=== PATIENT | male | born 1995 | race African-American/Black ===

== ENCOUNTER 2020-12-29 09:39 | Emergency (ER) | payer SELFPAY ==
[2020-12-29 09:50] VITALS: BP 109/69; PULSE 91; RESP 16; TEMP 36.2; O2SAT 100
--- NOTE | 2020-12-29 09:52 | ED.DIZZY ---
HPI - Dizziness General Chief Complaint: Unspecified Stated Complaint: Dizzy Time Seen by Provider: 12/29/20 09:53 Source: patient and RN notes reviewed Mode of arrival: ambulatory Limitations: no limitations History of Present Illness HPI Narrative: 25-year-old male presents with concern for intermittent brain fogginess for approximately 1 week. Reports he had a panic attack for which she was seen in the emergency room 1 week ago, and since then has been having intermittent brain fogginess and decreased appetite. He reports he ate a normal breakfast this morning and has not had any nausea, vomiting, diarrhea since then. He denies any current dizziness, headache, brain fogginess. He denies any history of headaches, thunderclap headaches. Denies weakness in any extremity, difficulty speaking, difficulty swallowing. He reports history of anemia. He reports he does not have health insurance or primary care doctor. He denies any falls, head injury. MD elicited complaint: dizziness Related Data Home Medications Medication Instructions Recorded Confirmed No Home Medications 12/29/20 12/29/20 Allergies Allergy/AdvReac Type Severity Reaction Status Date / Time No Known Allergies Allergy Unverified 12/29/20 10:04 Review of Systems Review of Systems: Narrative: CONSTITUTIONAL: Denies malaise, chills, sweats, or fever. EYES: Denies visual changes, redness, or discharge. ENT: Denies rhinorrhea, congestion, sinus pain, otalgia or sore throat. CARDIOVASCULAR: Denies chest pain, palpitations, or edema. RESPIRATORY: Denies cough or dyspnea. GASTROINTESTINAL: Denies abdominal pain, nausea, vomiting, diarrhea MUSCULOSKELETAL: Denies back pain, joint pain, or myalgia. NEUROLOGIC: Denies numbness, weakness, or headache. Reports intermittent brain fogginess, intermittent lightheadedness PSYCHIATRIC: Denies current anxiety or depression. Reports history of anxiety All systems reviewed & are unremarkable except as noted in HPI and below PMFSH Comments At time of signature, agree with nursing past medical, surgical, social and family history. There is no relevant family history pertinent to the presenting complaint Exam Narrative: Exam Narrative: GENERAL: Well-appearing, well-nourished, and in no acute distress. HEAD: Normocephalic, atraumatic. EYES: PERRLA, conjunctivae clear, and EOMI. No nystagmus. ENT: Nares clear, turbinates pink, no rhinorrhea or epistaxis. Mucous membranes moist. TM pearly arcos with sharp light reflex bilaterally; no tragal tenderness. Oropharynx without erythema or lesions. Tonsils not enlarged and without exudate. NECK: Supple. No lymphadenopathy. No jugular venous distension, thyromegaly, or carotid bruits. Carotids were easily palpable bilaterally. CHEST: No respiratory distress. Clear to auscultation. No bony deformities, no asymmetry. Speaks in full sentences. HEART: Regular rate and rhythm. No murmur heard. Normal peripheral pulses. ABDOMEN: Soft, nontender, nondistended, normal active bowel sounds, no palpable masses. EXTREMITIES: Normal range of motion. No edema. Normal strength and sensation. SKIN: Warm, dry, no rash. NEURO: Alert and oriented x3. No focal deficits. Cranial nerves II through XII grossly intact PSYCH: Normal mood and affect Course Course Emergency Course: Patient is aware of diagnosis, understands and agrees to treatment plan. Anticipatory guidance given. Patient agrees to follow-up as directed and is aware of reasons to seek care at the emergency department. Portions of this record may have been created with voice recognition software Vital Signs Vital signs: Vital Signs Temperature 97.1 F L 12/29/20 09:50 Pulse Rate 91 12/29/20 09:50 Respiratory Rate 16 12/29/20 09:50 Blood Pressure 109/69 12/29/20 09:50 Pulse Oximetry 100 12/29/20 09:50 Temperature 97.1 F L 12/29/20 09:50 Pulse Rate 91 12/29/20 09:50 Respiratory Rate 16 12/29/20 09:50 Blood Pressure 10
[2020-12-29 10:33] LABS: Glucose Point of Care 96 (65-105)
--- NOTE | 2020-12-29 10:33 | PC.NURSE ---
1029- accucheck is 96mg/Dl, and pt states that he had a meal approx 1.5 hrs ago.
== END 2020-12-29 10:32 | disposition home or self-care (01) ==
PROVIDERS: Emergency Provider Nurse Practitioner
DX: Z71.1 Person with feared health complaint in whom no diagnosis is made (principal); J45.909 Unspecified asthma, uncomplicated
CPT/HCPCS: 82948; 99212; G0463

== ENCOUNTER 2021-03-26 20:03 | Emergency (ER) | payer SELFPAY ==
--- NOTE | ~2021-03-26 | XR_ITS ---
EXAMINATION: XR chest 2V DATE: 03/26/2021 20:38 INDICATION: Chest pain TECHNIQUE: PA and lateral views of the chest are obtained. COMPARISON: 11/21/2018 FINDINGS: The lungs are free of acute opacities. There is no pleural effusion or pneumothorax. The ca rdiomediastinal silhouette is normal. The visualized bones and soft tissues are unremarkable. IMPRESSION: 1. No acute cardiopulmonary abnormality. Reviewed, dictated and finalized at location A.
[2021-03-26 20:18] VITALS: BP 122/77; PULSE 86; RESP 18; TEMP 37; O2SAT 100
--- NOTE | 2021-03-26 20:18 | ECG_ITS ---
Measurements Intervals [place] Rate: 80 P: 68 IN: 148 QRS: 79 QRSD: 88 T: 30 QT: 338 QTc: 392 Interpretive Statements SINUS RHYTHM NORMAL ECG Electronically Signed On 03-27-2021 6:42:59 CDT by Chetan Girard D.O.
[2021-03-26 20:39] LABS: Basophils Percent Auto 0.5 % (0.2-1.2); Eosinophils Absolute Auto 0.1 K/mm3 (0-0.3); Eosinophils Percent Auto 2.7 % (0-4.4); Hemoglobin 13.4 g/dL (14.0-18.0); Immature Granulocyte Absolute 0.01 K/mm3 (0.00-0.031); Immature Granulocyte Percent A 0.3 % (0-0.5); Lymphocytes Absolute Auto 1.47 K/mm3 (0.9-3.2); Lymphocytes Percent Auto 39.2 % (18.3-44.2); Mean Corpuscular HGB Conc 31.9 g/dl (32-36); Mean Corpuscular Hemoglobin 29.3 pg (26-34); Mean Corpuscular Volume 91.9 fl (80-100); Mean Platelet Volume 10.1 fl (7.4-10.4); Monocytes Absolute Auto 0.4 K/mm3 (0.1-0.6); Monocytes Percent Auto 9.6 % (2.6-8.5); Neutrophils Absolute Auto 1.8 K/mm3 (1.3-6.7); Neutrophils Percent Auto 47.7 % (45.5-73.1); Platelet Count Result 229 k/mm3 (150-375); Red Blood Count 4.57 M/mm3 (4.6-6.20); Red Cell Distribution Width 11.3 % (11.5-14.5); White Blood Count 3.8 K/mm3 (4.5-10.0)
[2021-03-26] MEDS: ASPIRIN 81 MG CHEWABLE TABLET 324 MG PO (20:46)
--- NOTE | 2021-03-26 20:47 | ED.CHESTPAIN ---
HPI - Chest Pain General Chief Complaint: Chest Pain Stated Complaint: left sided chest tightness Time Seen by Provider: 03/26/21 20:47 History of Present Illness HPI narrative: 25 yo male w/ h/o asthma presents to the ED for chest pain. He has had left sided pleuritic chest pain intermittently for the past few days. It is mild. He has not tried his inhaler. Related Data Home Medications Medication Instructions Recorded Confirmed No Home Medications 12/29/20 12/29/20 Allergies Allergy/AdvReac Type Severity Reaction Status Date / Time No Known Allergies Allergy Unverified 12/29/20 10:04 Review of Systems Review of Systems: All systems reviewed & are unremarkable except as noted in HPI and below Constitutional: Constitutional: Denies chills Respiratory: Respiratory: Denies dyspnea Gastrointestinal: Gastrointestinal: Denies abdominal pain Musculoskeletal: Musculoskeletal: Denies back pain Neurologic: Reports system reviewed and no additional complaints, except as documented PMF Past Medical History Medical History (Updated 04/04/21 @ 01:52 by Subhash Cameron MD) Asthma Social History Social History (Updated 04/04/21 @ 01:52 by Subhash Cameron MD) Smoking status: Never smoker Exam Const: General: healthy appearing, no acute distress and alert Orientation/consciousness: patient oriented x3 HENMT: Head: normal to inspection Neck: Neck: normal visual inspection and no lymphadenopathy Chest: Chest palpation & inspection: no tenderness Resp: Effort & Inspection: normal respiratory effort Auscultation: clear to auscultation bilaterally, no rales, no rhonchi and no wheezes Cardio: Jugular venous distension: no JVD Rate: regular rate Rhythm: regular rhythm Heart sounds: no murmurs GI: Inspection: non-distended GI Palp: Yes Soft to palpation and No Tenderness to palpation present (GI) Skin: General skin exam: normal color Neuro: General: patient oriented x3 and moves all extremities Speech: normal speech Extrem: General: no edema Psych: Appearance: well kempt Affect: normal affect Course Vital Signs Vital signs: Vital Signs Temperature 37.0 C 03/26/21 20:18 Pulse Rate 86 03/26/21 20:18 Respiratory Rate 18 03/26/21 20:18 Blood Pressure 122/77 03/26/21 20:18 Pulse Oximetry 100 03/26/21 20:18 Temperature 37.0 C 03/26/21 20:18 Pulse Rate 64 03/26/21 22:41 Respiratory Rate 16 03/26/21 22:41 Blood Pressure 122/71 03/26/21 22:41 Pulse Oximetry 100 03/26/21 22:41 MDM - Chest Pain Differential Diagnosis Differential diagnosis: Likely pneumothorax, atypical chest pain and costochondritis Medical Records Data Attestation: I reviewed the patient's medical records. Lab Data Attestation: I reviewed the patient's lab results. Result diagrams: 03/26/21 20:32 03/26/21 20:32 Labs: Lab Results 03/26/21 03/26/21 03/26/21 Range/Units 20:32 20:32 20:32 WBC 3.8 L (4.5-10.0) K/mm3 RBC 4.57 L (4.6-6.20) M/mm3 Hgb 13.4 L (14.0-18.0) g/dL Hct 42.0 (42.0-52.0) % MCV 91.9 (80-100) fl MCH 29.3 (26-34) pg MCHC 31.9 L (32-36) g/dl RDW 11.3 L (11.5-14.5) % Plt Count 229 (150-375) k/mm3 MPV 10.1 (7.4-10.4) fl Immature Gran % (Auto) 0.3 (0-0.5) % Neut % (Auto) 47.7 (45.5-73.1) % Lymph % (Auto) 39.2 (18.3-44.2) % [place] % (Auto) 9.6 H (2.6-8.5) % Eos % (Auto) 2.7 (0-4.4) % Baso % (Auto) 0.5 (0.2-1.2) % Lymph # (Auto) 1.47 (0.9-3.2) K/mm3 [place] # (Auto) 0.4 (0.1-0.6) K/mm3 Eos # (Auto) 0.1 (0-0.3) K/mm3 Baso # (Auto) 0.0 (0.0-0.1) K/mm3 Abs Immat Gran (auto) 0.01 (0.00-0.031) K/mm3 Absolute Neuts (auto) 1.8 (1.3-6.7) K/mm3 Absolute Nucleated RBC 0.0 (0.0-0.012) K/mm3 Nucleated RBC % 0.0 (0.0-0.2) % PT 13.5 (11.1-14.7) Seconds INR 1.0 APTT 33.7 (22.3-36.8) SECONDS Sodium 140 (137-14
[2021-03-26 20:48] VITALS: BP 142/76; PULSE 76; RESP 16; O2SAT 100
[2021-03-26 20:48] LABS: Prothrombin Time 13.5 Seconds (11.1-14.7)
[2021-03-26 20:49] LABS: Partial Thromboplastin Time 33.7 SECONDS (22.3-36.8)
[2021-03-26 20:50] LABS: Anion Gap 11 mmol/L (8-16); Blood Urea Nitrogen 12 mg/dL (9-20); Calcium 9.6 mg/dL (8.4-10.2); Carbon Dioxide 27 mmol/L (22-30); Chloride 102 mmol/L (98-107); Estimated Glomerular Filt Rate > 60; Glucose 130 mg/dL (65-110); Potassium 3.6 mmol/L (3.4-5.0); Sodium 140 mmol/L (137-145)
[2021-03-26 21:01] LABS: Troponin I < 0.012 ng/mL (0.000-0.034)
[2021-03-26 21:47] VITALS: PULSE 71; RESP 18
[2021-03-26] MEDS: ALBUTEROL SULFATE NEB 2.5 MG/0.5 ML INH 5 MG INHALATION (21:47)
[2021-03-26 21:54] VITALS: PULSE 65; RESP 19
[2021-03-26 22:41] VITALS: BP 122/71; PULSE 64; RESP 16; O2SAT 100
== END 2021-03-26 22:42 | disposition home or self-care (01) ==
PROVIDERS: Emergency Provider Emergency Medicine; PCP Physician Assistant
DX: R07.89 Other chest pain (principal); J45.909 Unspecified asthma, uncomplicated
CPT/HCPCS: 36415; 71046; 80048; 84484; 85025; 85610; 85730; 93005; 94640; 99284; A9270

== ENCOUNTER 2021-03-31 14:53 | Emergency (ER) | payer SELFPAY ==
[2021-03-31 15:00] VITALS: BP 127/95; PULSE 70; RESP 14; TEMP 36.7; O2SAT 99
[2021-03-31 15:18] LABS: Basophils Percent Auto 0.9 % (0.2-1.2); Eosinophils Percent Auto 1.2 % (0-4.4); Hematocrit 45.6 % (42.0-52.0); Hemoglobin 14.2 g/dL (14.0-18.0); Lymphocytes Absolute Auto 1.08 K/mm3 (0.9-3.2); Lymphocytes Percent Auto 33.5 % (18.3-44.2); Mean Corpuscular HGB Conc 31.1 g/dl (32-36); Mean Corpuscular Volume 93.3 fl (80-100); Mean Platelet Volume 10.1 fl (7.4-10.4); Monocytes Absolute Auto 0.3 K/mm3 (0.1-0.6); Monocytes Percent Auto 7.8 % (2.6-8.5); Neutrophils Absolute Auto 1.8 K/mm3 (1.3-6.7); Neutrophils Percent Auto 56.6 % (45.5-73.1); Platelet Count Result 247 k/mm3 (150-375); Red Blood Count 4.89 M/mm3 (4.6-6.20); Red Cell Distribution Width 11.1 % (11.5-14.5); White Blood Count 3.2 K/mm3 (4.5-10.0)
[2021-03-31 15:25] LABS: Alanine Aminotransferase 13 U/L (4-50); Albumin Level 4.5 g/dL (3.5-5.1); Alkaline Phosphatase 71 U/L (38-126); Anion Gap 6 mmol/L (8-16); Aspartate Amino Transferase 27 U/L (17-59); Bilirubin,Total 0.4 mg/dL (0.2-1.3); Blood Urea Nitrogen 11 mg/dL (9-20); Calcium 9.3 mg/dL (8.4-10.2); Carbon Dioxide 31 mmol/L (22-30); Chloride 104 mmol/L (98-107); Estimated CRCL calculation 81 ml/min; Estimated Glomerular Filt Rate > 60; Glucose 96 mg/dL (65-110); Lipase 33 U/L (23-300); Sodium 141 mmol/L (137-145)
[2021-03-31 15:39] LABS: Add Urine Microscopic? YES; Appearance Urine Cloudy (Clear); Bilirubin Urine Negative (Negative); Blood Urine Negative (Negative); Color Urine Yellow (Yellow); Glucose Urine UA Negative (Negative); Ketones Urine Negative (Negative); Leukocyte Esterase Ur Negative LEU/UL (Negative); Nitrate Urine Negative (Negative); Protein Urine Negative (Negative); RBC Urine 0-2 /hpf (0-2); Specific Grav Ur 1.011 (1.001-1.035); Urobilinogen Urine Negative mg/dL (<2.0); WBC Urine 0-3 /hpf
[2021-03-31 17:29] VITALS: BP 127/80; PULSE 64; RESP 20; O2SAT 100
[2021-03-31 18:57] VITALS: BP 131/67; PULSE 73; RESP 19; O2SAT 99
--- NOTE | 2021-03-31 18:58 | ED.GENADULT ---
HPI - General Adult General Chief complaint: Unspecified Stated complaint: DEHYDRATED Time Seen by Provider: 03/31/21 17:24 Source: patient and RN notes reviewed Mode of arrival: ambulatory Limitations: no limitations History of Present Illness HPI narrative: Patient is 25 years old -[place] male presented to the ED with chest tightness and palpitation started days ago. Patient believes probably because he is dehydrated. Patient denies any fever, chills, nausea, vomiting, shortness of breath, headache, vomiting, diarrhea, or diaphoresis. Patient under a lot of stress lately, history of anxiety. Patient does not smoke or drink or uses drugs. Related Data Home Medications Medication Instructions Recorded Confirmed No Home Medications 12/29/20 12/29/20 Allergies Allergy/AdvReac Type Severity Reaction Status Date / Time No Known Allergies Allergy Unverified 12/29/20 10:04 Review of Systems Review of Systems: CONSTITUTIONAL: Denies fever, chills, or sweats. EYES: Denies visual changes, redness, or discharge. ENT: Denies rhinorrhea, congestion, sore throat, or otalgia. CARDIOVASCULAR: Denies chest pain, palpitations, or edema. RESPIRATORY: Denies cough or dyspnea. GASTROINTESTINAL: Denies abdominal pain, nausea, vomiting, or diarrhea. GENITOURINARY: Denies dysuria or hematuria. SKIN: Denies rash or itching. MUSCULOSKELETAL: Denies back pain, joint pain, or myalgia. NEUROLOGIC: Denies headache, numbness, or weakness. PSYCHIATRIC: Denies anxiety or depression. Exam Narrative: General appearance: Well-developed, well-nourished Skin: Normal color Head: Normocephalic, nontraumatic Eyes: Clear conjunctiva ENT: Oropharynx normal, ears normal, nose normal Neck: Supple, nontender Chest and respiratory: Airway patent, no respiratory distress, no accessory muscle use Heart: Regular rate/rhythm Abdomen: Soft, nontender, no organomegaly, quiet bowel sounds Vascular: Normal peripheral pulses, normal capillary refill. 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 Patient does not have any comorbidity or any risk factors for any serious disease. Labs, EKG, showed no significant abnormality to explain patient condition. The plan to discharge patient on Vistaril, to follow-up with a principal statistical programmer for echo to rule out any cardiac abnormality could be the underlying cause of patient palpitation. Differential Diagnosis Differential Diagnosis: Palpitation, anxiety-like symptoms, electrolyte imbalance, cardiac arrhythmia Vital Signs Vital Signs: Vital Signs Temperature 36.7 C 03/31/21 15:00 Pulse Rate 70 03/31/21 15:00 Respiratory Rate 14 03/31/21 15:00 Blood Pressure 127/95 H 03/31/21 15:00 Pulse Oximetry 99 03/31/21 15:00 Temperature 36.7 C 03/31/21 15:00 Pulse Rate 73 03/31/21 19:22 Respiratory Rate 16 03/31/21 19:22 Blood Pressure 117/68 03/31/21 19:22 Pulse Oximetry 100 03/31/21 19:22 Lab Data Result diagrams: 03/31/21 15:08 03/31/21
--- NOTE | 2021-03-31 19:06 | ECG_ITS ---
Measurements Intervals [place] Rate: 76 P: 75 MD: 140 QRS: -40 QRSD: 93 T: 49 QT: 355 QTc: 401 Interpretive Statements SINUS RHYTHM LEFT AXIS DEVIATION ST ELEVATION IN DIFFUSE LEADS, PROBABLY EARLY REPOLARIZATION BASELINE ARTIFACT- I, II, III, AVR, AVL, AVF, V2-V6 BORDERLINE ECG Electronically Signed On 03-31-2021 21:11:31 CDT by Chetan Girard D.O.
[2021-03-31 19:22] VITALS: BP 117/68; PULSE 73; RESP 16; O2SAT 100
== END 2021-03-31 19:26 | disposition home or self-care (01) ==
PROVIDERS: Emergency Medicine; Emergency Provider Emergency Medicine; PCP Physician Assistant
DX: R00.2 Palpitations (principal); F41.9 Anxiety disorder, unspecified; R94.31 Abnormal electrocardiogram [ECG] [EKG]
CPT/HCPCS: 36415; 80053; 81001; 83690; 85025; 93005; 99283

== ENCOUNTER 2021-04-18 15:07 | Emergency (ER) | payer MEDICAID, SELFPAY ==
[2021-04-18 15:46] VITALS: BP 109/66; PULSE 65; RESP 16; TEMP 36.8; O2SAT 100
--- NOTE | 2021-04-18 15:52 | ECG_ITS ---
Measurements Intervals [place] Rate: 89 P: 74 MT: 134 QRS: 84 QRSD: 92 T: 37 QT: 323 QTc: 393 Interpretive Statements SINUS RHYTHM ST ELEVATION IN ANTEROLAT/HIGH LAT LEADS- PROBABLY EARLY REPOLARIZATION BASELINE ARTIFACT- I, III, AVL BORDERLINE ECG Electronically Signed On 04-18-2021 20:42:47 CDT by Chetan Girard D.O.
[2021-04-18 16:04] LABS: Basophils Percent Auto 0.9 % (0.2-1.2); Eosinophils Absolute Auto 0.1 K/mm3 (0-0.3); Eosinophils Percent Auto 1.4 % (0-4.4); Hematocrit 41.9 % (42.0-52.0); Hemoglobin 13.6 g/dL (14.0-18.0); Mean Corpuscular HGB Conc 32.5 g/dl (32-36); Mean Corpuscular Hemoglobin 30.2 pg (26-34); Mean Corpuscular Volume 93.1 fl (80-100); Mean Platelet Volume 9.7 fl (7.4-10.4); Monocytes Absolute Auto 0.3 K/mm3 (0.1-0.6); Monocytes Percent Auto 7.8 % (2.6-8.5); Neutrophils Absolute Auto 2.3 K/mm3 (1.3-6.7); Neutrophils Percent Auto 66.9 % (45.5-73.1); Platelet Count Result 234 k/mm3 (150-375); Red Cell Distribution Width 11.2 % (11.5-14.5); White Blood Count 3.5 K/mm3 (4.5-10.0)
[2021-04-18 16:13] LABS: INR 1.1; Prothrombin Time 13.6 Seconds (11.1-14.7)
[2021-04-18 16:14] LABS: Partial Thromboplastin Time 29.9 SECONDS (22.3-36.8)
[2021-04-18 16:29] LABS: Anion Gap 8 mmol/L (8-16); Blood Urea Nitrogen 10 mg/dL (9-20); Calcium 8.9 mg/dL (8.4-10.2); Carbon Dioxide 27 mmol/L (22-30); Chloride 101 mmol/L (98-107); Estimated CRCL calculation 108 ml/min; Estimated Glomerular Filt Rate > 60; Glucose 123 mg/dL (65-110); Potassium 3.3 mmol/L (3.4-5.0); Sodium 136 mmol/L (137-145)
[2021-04-18 16:40] LABS: Troponin I < 0.012 ng/mL (0.000-0.034)
--- NOTE | 2021-04-18 16:42 | PC.NURSE ---
iv that was placed by ems removed. pt states is feeling much better and will follow up with pmd. encouraged to return as needed.
== END 2021-04-19 04:54 | disposition left against medical advice (07) ==
PROVIDERS: Emergency Provider Emergency Medicine
DX: R20.2 Paresthesia of skin (principal); Z53.21 Procedure and treatment not carried out due to patient leaving prior to being seen by health care provider
CPT/HCPCS: 36415; 80048; 84484; 85025; 85610; 85730; 93005; 99199

== ENCOUNTER 2021-04-24 09:59 | Emergency (ER) | payer SELFPAY ==
[2021-04-24 10:10] VITALS: BP 108/81; PULSE 95; RESP 16; TEMP 36.1; O2SAT 100
--- NOTE | 2021-04-24 10:39 | ED.GENADULT ---
HPI - General Adult General Chief complaint: Unspecified Stated complaint: Trouble Swallowing Time Seen by Provider: 04/24/21 10:40 Source: patient Mode of arrival: ambulatory Limitations: no limitations History of Present Illness HPI narrative: Graham Willard is a 25 yo male with depression, anxiety, who comes to [facility] with complaints of feel like he has something stuck in his esophagus he has difficulty swallowing his loss of weight he is worried about the thirst something causing an obstruction-patient is very anxious and some going on for 2 days and finds it difficult to be able to swallow food. He currently is wearing a Holter monitor has a stress test scheduled tomorrow because of 3 weeks of rapid heart rate which is been diagnosed as anxiety but they are completing a work-up including a stress test to make sure that none of these things are cardiac related Related Data Home Medications Medication Instructions Recorded Confirmed escitalopram oxalate 10 mg PO DAILY 04/24/21 04/24/21 Allergies Allergy/AdvReac Type Severity Reaction Status Date / Time No Known Allergies Allergy Verified 04/24/21 10:37 Review of Systems Review of Systems: CONSTITUTIONAL: Denies fever, chills, sweats. EYES: Denies visual changes, redness, discharge. ENT: Denies rhinorrhea, congestion, sore throat, otalgia. CARDIOVASCULAR: Denies chest pain, palpitations, edema. RESPIRATORY: Denies dyspnea, wheezing, cough GASTROINTESTINAL: Dysphagia -denies abdominal pain, nausea, vomiting, diarrhea. GENITOURINARY: Denies dysuria, hematuria, abnormal discharge SKIN: Denies rash or itching. NEUROLOGIC: Denies numbness, or focal weakness. PSYCHIATRIC: Denies anxiety or depression. [facility] Past Medical History Medical History Anxiety Asthma Heart palpitations Family History Family History Other Heart disease Social History Social History (Updated 04/24/21 @ 10:52 by Colleen Hanyes CNP) Smoking status: Never smoker Alcohol intake: never Living arrangements: with family Comments At time of signature, I agree with nursing past medical, surgical, social and family history. There is no relevant family history pertinent to the presenting complaint. Exam Narrative: GENERAL: This is a well-nourished, well-developed patient, in mild distress. Very anxious HEAD: normocephalic, atraumatic. EYES: Sclera clear/white. Vision is grossly intact. EARS: External ears normal, . Hearing grossly intact. NOSE: External nose normal without nasal discharge, nares without redness, no rhinorrhea. THROAT: Mucous membranes moist, posterior pharynx NECK: Neck supple, CARDIOVASCULAR: Tachycardic rate and rhythm without murmurs, gallops, or rubs. RESPIRATORY: Clear to auscultation. Breath sounds equal bilaterally. No wheezes, rales, or rhonchi. GASTROINTESTINAL: Abdomen soft, SKIN: warm, intact with no suspicious lesions or rash, good texture and turgor. NEURO: awake, alert, and oriented to person, place and time. There were no obvious focal neurologic abnormalities. Steady gait EXTREMITIES: Normal range of motion. BACK: Nontender without deformity Course Course Emergency Course: Patient is currently on a Holter monitor and has a stress test scheduled for tomorrow; he is complaining of feeling like he has difficulty swallowing food Started on Protonix and Maalox He has follow-up scheduled with cardiology and he should follow-up with his primary care physician about swallowing difficulty Vital Signs Vital signs: Vital Signs Temperature 96.9 F L 04/24/21 10:10 Pulse Rate 95 04/24/21 10:10 Respiratory Rate 16 04/24/21 10:10 Blood Pressure 108/81 04/24/21 10:10 Pulse Oximetry 100 04/24/21 10:10 Temperature 96.9 F L 04/24/21 10:10 Pulse Rate 95 04/24/21 10:10 Respiratory Rate 16 04/24/21 10:10 Blood Press
== END 2021-04-24 11:30 | disposition home or self-care (01) ==
PROVIDERS: Emergency Provider Nurse Practitioner; PCP Physician Assistant
DX: K21.9 Gastro-esophageal reflux disease without esophagitis (principal); F41.9 Anxiety disorder, unspecified; J45.909 Unspecified asthma, uncomplicated
CPT/HCPCS: 99213; G0463

== ENCOUNTER 2021-04-25 22:29 | Emergency (ER) | payer SELFPAY ==
--- NOTE | ~2021-04-25 | XR_ITS ---
XR chest 2V DATE: 04/25/2021 22:59 INDICATION: Left chest pain TECHNIQUE: PA and lateral views COMPARISON: 03/26/2021 2 view chest FINDINGS: Normal heart size. No hilar or mediastinal enlargement. No pulmonary infiltrate or consolid ation, pleural effusion or pulmonary congestion or pneumothorax. IMPRESSION: Negative chest Reviewed, dictated and finalized at location A. IMPRESSION: Negative chest
--- NOTE | 2021-04-25 22:32 | ECG_ITS ---
Measurements Intervals [place] Rate: 68 P: 81 OR: 139 QRS: 88 QRSD: 92 T: 58 QT: 358 QTc: 382 Interpretive Statements SINUS RHYTHM BASELINE WANDER- I, II, AVR, AVL, AVF, V1 NORMAL ECG Electronically Signed On 04-26-2021 6:59:51 CDT by Chetan Girard D.O.
[2021-04-25 22:41] VITALS: BP 118/74; PULSE 75; RESP 20; TEMP 37; O2SAT 100
[2021-04-25 22:49] LABS: Basophils Percent Auto 0.9 % (0.2-1.2); Eosinophils Absolute Auto 0.1 K/mm3 (0-0.3); Eosinophils Percent Auto 2.1 % (0-4.4); Hematocrit 45.1 % (42.0-52.0); Hemoglobin 14.8 g/dL (14.0-18.0); Lymphocytes Absolute Auto 1.78 K/mm3 (0.9-3.2); Lymphocytes Percent Auto 41.6 % (18.3-44.2); Mean Corpuscular HGB Conc 32.8 g/dl (32-36); Mean Corpuscular Hemoglobin 29.9 pg (26-34); Mean Corpuscular Volume 91.1 fl (80-100); Monocytes Absolute Auto 0.5 K/mm3 (0.1-0.6); Monocytes Percent Auto 11.2 % (2.6-8.5); Neutrophils Absolute Auto 1.9 K/mm3 (1.3-6.7); Neutrophils Percent Auto 44.2 % (45.5-73.1); Platelet Count Result 260 k/mm3 (150-375); Red Blood Count 4.95 M/mm3 (4.6-6.20); White Blood Count 4.3 K/mm3 (4.5-10.0)
--- NOTE | 2021-04-25 22:56 | ED.CHESTPAIN ---
HPI - Chest Pain General Chief Complaint: Chest Pain Stated Complaint: chest pain Time Seen by Provider: 04/25/21 22:52 Source: RN notes reviewed History of Present Illness HPI narrative: Patient presents emergency department from home for chest pain. Patient states that he is laying down watching movie when he developed left-sided chest pain under his left breast he states the pain lasted approximately 10 minutes and resolved on its own described as sharp and stabbing denies any associated shortness of breath fevers or chills abdominal pain nausea vomiting or any other symptoms denies any pain at this time. Patient states he has been seen a family support worker in [place] because he has been having heart palpitations over the last cities had negative echo and negative work-up he has had no pain like he experienced today Related Data Home Medications Medication Instructions Recorded Confirmed escitalopram oxalate 10 mg PO DAILY 04/24/21 04/24/21 Allergies Allergy/AdvReac Type Severity Reaction Status Date / Time No Known Allergies Allergy Verified 04/24/21 10:37 Review of Systems Review of Systems: Gen.: Denies fevers or chills ENT: Denies congestion Respiratory: Denies shortness of breath or cough CV: See HPI GI: Denies abdominal pain nausea, emesis or diarrhea Musculoskeletal: Denies back pain or muscle pain Neuro: Denies numbness, tingling, weakness or focal weakness Skin: Denies rash Except as documented, all other systems reviewed and negative [facility] Past Medical History Medical History Anxiety Asthma Heart palpitations Family History Family History Other Heart disease Social History Social History Smoking status: Never smoker Alcohol intake: never Exam Narrative: APPEARANCE: No acute distress, nontoxic, resting in bed EYES: EOMI HEENT: Normocephalic, atraumatic, OMM RESPIRATORY: No respiratory distress Clear to auscultation bilaterally with no rhonchi wheezing or rales. CARDIOVASCULAR: Regular rate and rhythm without murmurs rubs or gallops. ABDOMINAL: Soft, nontender, nondistended, no rebound or guarding MUSCULOSKELETAl: Moves all extremities. No clubbing, cyanosis or edema. NEURO: Awake and alert. Following commands, speech normal, no focal deficits SKIN:: Warm, dry. No rashes lesions or abrasions PSYCHIATRIC: Normal affect/mood, Course Course Emergency Course: Patient has had no chest pain while in ED Discussed with patient results of workup and diagnosis. Discussed need for follow-up with primary care, proper use of medication, and reasons to return to the emergency department. Patient understands and agrees to current treatment plan Vital Signs Vital signs: Vital Signs Temperature 98.6 F 04/25/21 22:41 Pulse Rate 75 04/25/21 22:41 Respiratory Rate 20 04/25/21 22:41 Blood Pressure 118/74 04/25/21 22:41 Pulse Oximetry 100 04/25/21 22:41 Temperature 98.6 F 04/25/21 22:41 Pulse Rate 85 04/26/21 03:27 Respiratory Rate 15 04/26/21 03:27 Blood Pressure 112/84 04/26/21 03:27 Pulse Oximetry 100 04/26/21 03:27 MDM - Chest Pain MDM Narrative Medical decision making narrative: Patient's EKGs and labs are without significant high risk changes. Cardiac risk factors reviewed. Patient is felt likely low risk for ACS and reasonable for further risk stratification testing as an outpatient. Pain was not sudden or maximal in onset without tearing or ripping quality. No other signs of symptoms suggest aortic dissection. A low-risk Wells criteria is noted, PE is felt to be unlikely. No pneumonia seen on evaluation today. Patient is felt to be a reasonable candidate for continued evaluation as an outpatient Lab Data Result diagrams: 04/25/21 22:41 04/25/21 23:57 Labs: Lab Results
[2021-04-25 23:03] LABS: INR 1.1; Prothrombin Time 13.6 Seconds (11.1-14.7)
[2021-04-25 23:04] LABS: Partial Thromboplastin Time 30.9 SECONDS (22.3-36.8)
[2021-04-25 23:32] VITALS: BP 117/66; PULSE 65; RESP 20; O2SAT 96
[2021-04-25 23:35] LABS: D Dimer 0.27 ug/mL (<0.48)
[2021-04-25 23:58] VITALS: BP 108/74; PULSE 67; RESP 18; O2SAT 97
[2021-04-26 00:31] LABS: Anion Gap 7 mmol/L (8-16); Blood Urea Nitrogen 17 mg/dL (9-20); Calcium 8.7 mg/dL (8.4-10.2); Carbon Dioxide 26 mmol/L (22-30); Chloride 104 mmol/L (98-107); Estimated CRCL calculation 88 ml/min; Estimated Glomerular Filt Rate > 60; Glucose 99 mg/dL (65-110); Potassium 3.7 mmol/L (3.4-5.0); Sodium 137 mmol/L (137-145)
[2021-04-26 00:43] LABS: Troponin I < 0.012 ng/mL (0.000-0.034)
[2021-04-26 03:27] VITALS: BP 112/84; PULSE 85; RESP 15; O2SAT 100
[2021-04-26 04:15] LABS: Troponin I < 0.012 ng/mL (0.000-0.034)
[2021-04-26 04:50] VITALS: BP 105/87; PULSE 69; RESP 18; O2SAT 97
== END 2021-04-26 04:52 | disposition home or self-care (01) ==
PROVIDERS: Emergency Medicine; Emergency Provider Emergency Medicine; PCP Physician Assistant
DX: R07.89 Other chest pain (principal); J45.909 Unspecified asthma, uncomplicated; F41.9 Anxiety disorder, unspecified
CPT/HCPCS: 36415; 71046; 80048; 84484; 85025; 85380; 85610; 85730; 93005; 99284

== ENCOUNTER 2021-05-19 11:22 | Emergency (ER) | payer SELFPAY ==
--- NOTE | ~2021-05-19 | XR_ITS ---
EXAMINATION: XR chest 2V EXAM DATE: 05/19/2021 11:48 INDICATION: Left-sided chest tightness. History asthma. TECHNIQUE: Frontal and lateral projections of the chest obtained and reviewed. Comparison is made to prior examination from 04/25/2021. FINDINGS: The lungs are clear. There are no pleural effusions. The cardiomediastinal silhouette is within normal limits. There is no pneumothorax suspected. The bones and soft tissues are unremarkab le. IMPRESSION: Normal chest x-ray exam. Reviewed, dictated and finalized at location B. IMPRESSION: Normal chest x-ray exam.
--- NOTE | 2021-05-19 11:24 | ECG_ITS ---
Measurements Intervals [place] Rate: 67 P: 62 [place]: 147 QRS: 72 QRSD: 92 T: 44 QT: 351 QTc: 371 Interpretive Statements SINUS RHYTHM WITH SINUS ARRHYTHMIA NORMAL ECG Electronically Signed On 05-19-2021 11:46:21 CDT by Chetan Girard D.O.
[2021-05-19 11:30] VITALS: BP 139/64; PULSE 94; RESP 16; TEMP 36.7; O2SAT 100
[2021-05-19 11:40] LABS: Basophils Percent Auto 0.7 % (0.2-1.2); Eosinophils Absolute Auto 0.1 K/mm3 (0-0.3); Eosinophils Percent Auto 1.7 % (0-4.4); Hematocrit 43.2 % (42.0-52.0); Hemoglobin 13.9 g/dL (14.0-18.0); Lymphocytes Absolute Auto 1.05 K/mm3 (0.9-3.2); Lymphocytes Percent Auto 35.8 % (18.3-44.2); Mean Corpuscular HGB Conc 32.2 g/dl (32-36); Mean Corpuscular Hemoglobin 30.2 pg (26-34); Mean Corpuscular Volume 93.9 fl (80-100); Mean Platelet Volume 9.7 fl (7.4-10.4); Monocytes Absolute Auto 0.2 K/mm3 (0.1-0.6); Monocytes Percent Auto 8.2 % (2.6-8.5); Neutrophils Absolute Auto 1.6 K/mm3 (1.3-6.7); Neutrophils Percent Auto 53.6 % (45.5-73.1); Platelet Count Result 228 k/mm3 (150-375); Red Cell Distribution Width 11.5 % (11.5-14.5); White Blood Count 2.9 K/mm3 (4.5-10.0)
[2021-05-19 11:49] LABS: Prothrombin Time 13.4 Seconds (11.1-14.7)
[2021-05-19 11:50] LABS: Partial Thromboplastin Time 32.9 SECONDS (22.3-36.8)
[2021-05-19 12:00] LABS: Anion Gap 6 mmol/L (8-16); Blood Urea Nitrogen 13 mg/dL (9-20); Calcium 9.3 mg/dL (8.4-10.2); Carbon Dioxide 31 mmol/L (22-30); Chloride 102 mmol/L (98-107); Estimated CRCL calculation 99 ml/min; Estimated Glomerular Filt Rate > 60; Glucose 97 mg/dL (65-110); Potassium 4.1 mmol/L (3.4-5.0); Sodium 139 mmol/L (137-145)
[2021-05-19 12:11] LABS: Troponin I < 0.012 ng/mL (0.000-0.034)
--- NOTE | 2021-05-19 12:21 | ED.GENADULT ---
HPI - General Adult General Chief complaint: Chest Pain Stated complaint: CP Time Seen by Provider: 05/19/21 12:02 Source: patient History of Present Illness HPI narrative: Patient is a 25 y/o male complaining of left sided chest tightness and irritation for last 2 days. He rates his discomfort as 4-5/10. His chest pain radiates to left upper back and shoulder. There is no known alleviating or exacerbating factor. He has some intermittent cough. He also has sore throat. He has no fever or chills. Related Data Home Medications Medication Instructions Recorded Confirmed escitalopram oxalate 10 mg PO DAILY 04/24/21 04/24/21 Allergies Allergy/AdvReac Type Severity Reaction Status Date / Time No Known Allergies Allergy Verified 04/24/21 10:37 Review of Systems Constitutional: Constitutional: Denies chills, Denies fever(s), Denies headache(s) and Denies weakness Eyes: Eyes: Denies blurry vision ENT: Denies headache(s), Denies neck pain and Reports sore throat Cardiovascular: Cardiovascular: Reports chest pain and Denies dyspnea Respiratory: Respiratory: Reports cough and Denies dyspnea Gastrointestinal: Gastrointestinal: Denies abdominal pain, Denies diarrhea, Denies nausea and Denies vomiting Genitourinary: Genitourinary: Denies hematuria and Denies dysuria Musculoskeletal: Musculoskeletal: Denies back pain and Denies neck pain Neurologic: Denies headache(s) and Denies weakness [facility] Past Medical History Medical History Anxiety Asthma Heart palpitations Family History Family History Other Heart disease Social History Social History Smoking status: Never smoker Alcohol intake: never Exam Const: General: no acute distress and well developed Orientation/consciousness: oriented to person, oriented to place, oriented to time and patient oriented x3 HENMT: Head: normocephalic Ears: external ears normal General nose exam: Normal external nose present Eyes: General: appearance normal, both eyes and all related structures Conjunctivae: conjunctivae normal Neck: Neck: normal visual inspection and full ROM Chest: Chest palpation & inspection: normal inspection of the chest and no tenderness Resp: Effort & Inspection: normal respiratory effort Auscultation: clear to auscultation bilaterally Cardio: Rate: regular rate Rhythm: regular rhythm GI: GI Palp: No abdominal tenderness and Yes Soft to palpation Skin: General skin exam: normal color and turgor normal Neuro: General: oriented to person, oriented to place, oriented to time and patient oriented x3 Cognition (Neuro): normal cognition Extrem: General: normal to inspection, full ROM and no pedal edema Psych: Appearance: grossly normal Mental Status: mental status grossly normal Affect: normal affect Course Reevaluation(s) Reevaluation #1: Offered patient COVID test. However, patient declined and stated that he had already scheduled a free test at [facility], he will do outpatient test as scheduled. Date: 05/19/21 Time: 12:50 Vital Signs Vital signs: Vital Signs Temperature 36.7 C 05/19/21 11:30 Pulse Rate 94 05/19/21 11:30 Respiratory Rate 16 05/19/21 11:30 Blood Pressure 139/64 05/19/21 11:30 Pulse Oximetry 100 05/19/21 11:30 Temperature 36.7 C 05/19/21 11:30 Pulse Rate 72 05/19/21 16:10 Respiratory Rate 20 05/19/21 16:10 Blood Pressure 103/64 05/19/21 16:10 Pulse Oximetry 100 05/19/21 16:10 Medical Decision Making Vital Signs Vital Signs: Vital Signs Temperature 36.7 C 05/19/21 11:30 Pulse Rate 94 05/19/21 11:30 Respiratory Rate 16 05/19/21 11:30 Blood Pressure 139/64 05/19/21 11:30 Pulse Oximetry 100 05/19/21 11:30 Temperature 36.7 C 05/19/21 11:30 Pulse Rate 72 05/19/21 16:10 Respirat
[2021-05-19 14:01] VITALS: BP 110/75; PULSE 75; RESP 12; O2SAT 98
[2021-05-19 14:16] LABS: D Dimer 0.27 ug/mL (<0.48)
[2021-05-19 15:40] LABS: Troponin I < 0.012 ng/mL (0.000-0.034)
[2021-05-19 16:10] VITALS: BP 103/64; PULSE 72; RESP 20; O2SAT 100
== END 2021-05-19 16:41 | disposition home or self-care (01) ==
PROVIDERS: Emergency Medicine; Emergency Provider Emergency Medicine; PCP Physician Assistant
DX: R07.89 Other chest pain (principal); J06.9 Acute upper respiratory infection, unspecified; Z20.822 Contact with and (suspected) exposure to COVID-19; F41.9 Anxiety disorder, unspecified; J45.909 Unspecified asthma, uncomplicated
CPT/HCPCS: 36415; 71046; 80048; 84484; 85025; 85380; 85610; 85730; 87081; 87880; 93005; 99284

== ENCOUNTER 2021-07-27 09:24 | Emergency (ER) | payer SELFPAY ==
[2021-07-27 09:34] VITALS: BP 120/67; PULSE 80; RESP 16; TEMP 36.9; O2SAT 100
--- NOTE | 2021-07-27 09:53 | ED.URI ---
HPI - URI/Sore Throat General Chief Complaint: Upper Respiratory Infection Stated Complaint: sore throat Time Seen by Provider: 07/27/21 09:45 Source: patient Mode of arrival: ambulatory Limitations: no limitations History of Present Illness HPI Narrative: Graham Willard is a 25 yo male with no PMH who comes to [facility] with complaints of sore throat x2 to 3 days. States is difficult for him to talk and swallow Related Data Home Medications Medication Instructions Recorded Confirmed No Home Medications 07/27/21 07/27/21 Allergies Allergy/AdvReac Type Severity Reaction Status Date / Time No Known Allergies Allergy Verified 07/27/21 09:35 Review of Systems Review of Systems: CONSTITUTIONAL: Denies fever, chills, sweats. EYES: Denies visual changes, redness, discharge. ENT: Denies rhinorrhea, congestion, has sore throat, otalgia. CARDIOVASCULAR: Denies chest pain, palpitations, edema. RESPIRATORY: Denies dyspnea, wheezing, cough GASTROINTESTINAL: Denies abdominal pain, nausea, vomiting, diarrhea. GENITOURINARY: Denies dysuria, hematuria, abnormal discharge SKIN: Denies rash or itching. NEUROLOGIC: Denies numbness, or focal weakness. PSYCHIATRIC: Denies anxiety or depression. [facility] Past Medical History Medical History Anxiety Asthma Heart palpitations Family History Family History Other Heart disease Social History Social History Smoking status: Never smoker Alcohol intake: never Comments At time of signature, I agree with nursing past medical, surgical, social and family history. There is no relevant family history pertinent to the presenting complaint. Exam Narrative: GENERAL: This is a well-nourished, well-developed patient, in mild distress. HEAD: normocephalic, atraumatic. EYES: Sclera clear/white. Vision is grossly intact. EARS: External ears normal. Hearing grossly intact. NOSE: External nose normal without nasal discharge, nares without redness, no rhinorrhea. THROAT: Mucous membranes moist, posterior pharynx erythema NECK: Neck supple, non-tender CARDIOVASCULAR: Regular rate and rhythm without murmurs, gallops, or rubs. RESPIRATORY: Clear to auscultation. Breath sounds equal bilaterally. No wheezes, rales, or rhonchi. GASTROINTESTINAL: Abdomen soft, non-tender, SKIN: warm, intact with no suspicious lesions or rash, good texture and turgor. NEURO: awake, alert, and oriented to person, place and time. There were no obvious focal neurologic abnormalities. Steady gait EXTREMITIES: Normal range of motion. BACK: Nontender without deformity Course Course Emergency Course: Patient comes to [facility] for evaluation of sore throat Strep test negative Recommended use of Flonase, Zyrtec, lozenges Vital Signs Vital signs: Vital Signs Temperature 98.4 F 07/27/21 09:34 Pulse Rate 80 07/27/21 09:34 Respiratory Rate 16 07/27/21 09:34 Blood Pressure 120/67 07/27/21 09:34 Pulse Oximetry 100 07/27/21 09:34 Temperature 98.4 F 07/27/21 09:34 Pulse Rate 80 07/27/21 09:34 Respiratory Rate 16 07/27/21 09:34 Blood Pressure 120/67 07/27/21 09:34 Pulse Oximetry 100 07/27/21 09:34 MDM - URI/Sore Throat Differential Diagnosis Differential diagnosis: Likely upper respiratory infection, otitis media, sinusitis, bronchitis, pharyngitis and other Lab Data Labs: Strep Screen Presumptive Negative *(Reference Range: Negative)* Critical Care Time Critical Care Time Critical Care Time: No Discharge Plan Discharge Clinical Impression: Pharyngitis Qualifiers: Pharyngitis/tonsillitis etiology: unspecified etiology Qualified Code(s): J02.9 - Acute pharyngitis, unspecified Patient Disposition: Home, Self-Care Condition: Stable
== END 2021-07-27 10:15 | disposition home or self-care (01) ==
PROVIDERS: Emergency Provider Nurse Practitioner
DX: J02.9 Acute pharyngitis, unspecified (principal); J45.909 Unspecified asthma, uncomplicated
CPT/HCPCS: 87081; 87880; 99213; G0463

== ENCOUNTER 2021-07-31 08:47 | Emergency (ER) | payer SELFPAY ==
--- NOTE | 2021-07-31 09:04 | PC.NURSE ---
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 HE STATED HE WAS JUST GOING TO LEAVE. PT AMBULATED OUT OF ED WITH STEADY GAIT, NO DISTRESS NOTED.
== END 2021-07-31 09:04 | disposition left against medical advice (07) ==
LOC: ANHED 09:08
DX: Z53.21 Procedure and treatment not carried out due to patient leaving prior to being seen by health care provider (principal)
CPT/HCPCS: 99199

== ENCOUNTER 2021-11-12 10:09 | Emergency (ER) | payer SELFPAY ==
--- NOTE | ~2021-11-12 | XR_ITS ---
EXAMINATION: XR foot LT min 3V DATE: 11/12/2021 10:31 INDICATION: Left foot pain post injury TECHNIQUE: Dorsoplantar, two oblique and lateral views of the left foot were obtained. COMPARISON: None. FINDINGS: Alignment is normal. No fracture. Joint spaces are normal. Soft tissue swelling at the dorsolateral a spect of the hindfoot. No ankle joint effusion. IMPRESSION: 1. No osseous abnormality. Reviewed, dictated and finalized at location A. IMPRESSION: 1. No osseous abnormality.
--- NOTE | 2021-11-12 10:14 | ED.LOWEXIN ---
HPI - Extremity Injury (Lower) General Chief Complaint: Extremity Injury, Lower Stated Complaint: left foot pain Time Seen by Provider: 11/12/21 10:14 Source: patient Mode of arrival: ambulatory Limitations: no limitations History of Present Illness HPI Narrative: 26-year-old male presents with complaint of left lateral foot pain since yesterday. Patient states he tripped over a parking curb, left ankle twisted and he fell on top of it. Pain was really bad yesterday but feels somewhat better after sleeping. Ambulatory with limp. All systems reviewed and negative except as noted above. Related Data Home Medications Medication Instructions Recorded Confirmed albuterol 11/12/21 Allergies Allergy/AdvReac Type Severity Reaction Status Date / Time No Known Allergies Allergy Verified 07/27/21 09:35 Review of Systems Review of Systems: CONSTITUTIONAL: Denies fever, chills, or sweats. EYES: Denies visual changes, redness, or discharge. ENT: Denies rhinorrhea, congestion, sore throat, or otalgia. CARDIOVASCULAR: Denies chest pain, palpitations, or edema. RESPIRATORY: Denies cough or dyspnea. GASTROINTESTINAL: Denies abdominal pain, nausea, vomiting, or diarrhea. GENITOURINARY: Denies dysuria or hematuria. SKIN: Denies rash or itching. MUSCULOSKELETAL: Denies back pain, joint pain, or myalgia. Left lateral foot pain. NEUROLOGIC: Denies headache, numbness, or weakness. PSYCHIATRIC: Denies anxiety or depression. All other systems reviewed are negative, except as documented in HPI. [facility] Past Medical History Medical History Anxiety Asthma Heart palpitations Family History Family History Other Heart disease Social History Social History Smoking status: Never smoker Alcohol intake: never Comments At time of signature, agree with nursing past medical, surgical, social and family history. There is no relevant family history pertinent to the presenting complaint. Exam Narrative: GENERAL: This is a well-nourished, well-developed patient, in no apparent distress. HEAD: normocephalic, atraumatic. EYES: PERRL. Sclera clear/white. Vision is grossly intact. EARS: External ears normal, auditory canals clear and without drainage, TMs normal without perforation. Hearing grossly intact. NOSE: External nose normal with no obvious nasal discharge, nares without redness, no rhinorrhea. THROAT: Mucous membranes moist, posterior pharynx clear. NECK: Neck supple, non-tender without lymphadenopathy, masses or thyromegaly. CARDIOVASCULAR: Regular rate and rhythm without murmurs, gallops, or rubs. RESPIRATORY: Clear to auscultation. Breath sounds equal bilaterally. No wheezes, rales, or rhonchi. GASTROINTESTINAL: Abdomen soft, non-tender, nondistended. Bowel sounds are active. No hepato-splenomegaly, or palpable masses. No guarding. SKIN: warm, Dry, intact with no suspicious lesions or rash, good texture and turgor. NEURO: awake, alert, and oriented to person, place and time. There were no obvious focal neurologic abnormalities. EXTREMITIES: No joint tenderness, effusion, or edema noted. No calf tenderness. Negative Homans sign bilaterally. Tenderness to proximal aspect fourth and fifth metatarsals. Swelling noted. Range of motion and distal neurovascular intact. BACK: Nontender without deformity. No CVA tenderness. Course Course Level of Care: Express Care Visit Vital Signs Vital signs: Vital Signs Temperature 37.2 C 11/12/21 10:17 Pulse Rate 77 11/12/21 10:17 Respiratory Rate 16 11/12/21 10:17 Blood Pressure 100/57 L 11/12/21 10:17 Pulse Oximetry 99 11/12/21 10:17 Temperature 37.2 C 11/12/21 10:17 Pulse Rate 77 11/12/21 10:17 Respiratory Rate 16 11/12/21 10:17 Blood Pressure 100/57 L 11/12/21 10:17 Pulse Oximetry 99 11/12/21
[2021-11-12 10:17] VITALS: BP 100/57; PULSE 77; RESP 16; TEMP 37.2; O2SAT 99
== END 2021-11-12 11:10 | disposition home or self-care (01) ==
PROVIDERS: Emergency Provider Nurse Practitioner Family; PCP Physician Assistant
DX: S93.602A Unspecified sprain of left foot, initial encounter (principal); W18.09XA Striking against other object with subsequent fall, initial encounter; J45.909 Unspecified asthma, uncomplicated
CPT/HCPCS: 73630; 99213; G0463

== ENCOUNTER 2023-03-08 10:58 | Emergency (ER) | payer MEDICAID, SELFPAY ==
[2023-03-08 11:08] VITALS: BP 104/84; PULSE 81; RESP 16; TEMP 36.9; O2SAT 100
--- NOTE | 2023-03-08 12:15 | ED.DENTAL ---
HPI - Dental/Oral General Chief complaint: Dental/Oral Stated complaint: right side tooth pain Time Seen by Provider: 03/08/23 12:05 Source: patient and RN notes reviewed Mode of arrival: ambulatory Limitations: no limitations History of Present Illness HPI Narrative: Patient presents today complaining of pain and swelling surrounding his right lower wisdom tooth x2 days. Currently rates his pain 6/10 and has been taking ibuprofen with short-term relief. He has been trying to get to see a dentist for several months, but has been unable. Denies shortness of breath. He does report some difficulty fully opening his mouth since symptoms began. Related Data Allergies Allergy/AdvReac Type Severity Reaction Status Date / Time No Known Allergies Allergy Verified 03/08/23 11:06 Review of Systems Review of Systems: CONSTITUTIONAL: Denies body aches, fever, chills, or sweats. EYES: Denies visual changes, redness, or discharge. ENT: Denies rhinorrhea, congestion, sore throat, or otalgia.+ gum swelling and tooth pain CARDIOVASCULAR: Denies chest pain, palpitations, or edema. RESPIRATORY: Denies cough or dyspnea. GASTROINTESTINAL: Denies abdominal pain, nausea, vomiting, or diarrhea. GENITOURINARY: Denies dysuria or hematuria. SKIN: Denies rash, itching, or wounds. MUSCULOSKELETAL: Denies back pain, joint pain, or myalgia. NEUROLOGIC: Denies headache, numbness, tingling, or weakness. PSYCH: Denies depression or anxiety. [facility] Past Medical History Medical History Anxiety Asthma Heart palpitations Family History Family History Other Heart disease Social History Social History Smoking status: Never smoker Alcohol intake: never Living arrangements: with family Comments At time of signature, I have reviewed and agree with nursing past medical, surgical, social and family history unless otherwise noted. Please see nursing chart for further information. There is no relevant family history pertinent to the presenting complaint Exam Narrative: GENERAL: Well-appearing, well-nourished, and in no acute distress. HEAD: Normocephalic, atraumatic. EYES: EOMI. No redness or drainage. Conjunctivae normal. ENT: Mucous membranes pink and moist. + gum swelling surrounding tooth number 32 with mild erythema. This area is tender to palpation. Patient does have some mild trismus as well. NECK: Normal AROM. CHEST: No respiratory distress. EXTREMITIES: Normal range of motion. No edema. SKIN: Warm, dry, no rash. Capillary refill normal. Normal skin turgor. NEURO: No focal deficits. Alert and oriented x3. Gait steady. PSYCH: Normal affect. No signs of depression or anxiety. Course Course Level of Care: Express Care Visit Vital Signs Vital signs: Vital Signs Temperature 98.5 F 03/08/23 11:08 Pulse Rate 81 03/08/23 11:08 Respiratory Rate 16 03/08/23 11:08 Blood Pressure 104/84 03/08/23 11:08 Pulse Oximetry 100 03/08/23 11:08 Oxygen Delivery Room Air 03/08/23 11:08 Temperature 98.5 F 03/08/23 11:08 Pulse Rate 81 03/08/23 11:08 Respiratory Rate 16 03/08/23 11:08 Blood Pressure 104/84 03/08/23 11:08 Pulse Oximetry 100 03/08/23 11:08 Oxygen Delivery Room Air 03/08/23 11:08 Reviewed. Pt has been instructed to follow up with his PCP regarding his elevated blood pressure today. MDM - Dental/Oral MDM Narrative Medical decision making narrative: Will treat patient with amoxicillin for his gingival swelling. Suggest follow-up with dentist as soon as possible. Anticipatory guidance given. Differential Diagnosis Differential diagnosis: Likely gingival abscess, dental caries, toothache, dental abscess and fracture of tooth Critical Care Time Critical Care Time Critical Care Time: No Disch
== END 2023-03-08 12:30 | disposition home or self-care (01) ==
PROVIDERS: Emergency Provider Nurse Practitioner
DX: K05.10 Chronic gingivitis, plaque induced (principal); J45.909 Unspecified asthma, uncomplicated
CPT/HCPCS: 99213; G0463

== ENCOUNTER 2023-11-14 19:22 | Emergency (ER) | payer MEDICAID, SELFPAY ==
[2023-11-14 19:38] VITALS: BP 123/75; PULSE 137; RESP 16; TEMP 39.9; O2SAT 98
--- NOTE | 2023-11-14 19:56 | ED.FEVER ---
HPI - Fever General Chief Complaint: Upper Respiratory Infection Stated Complaint: Fever/Abdominal Pain Time Seen by Provider: 11/14/23 19:42 Source: patient and RN notes reviewed Mode of arrival: ambulatory Limitations: no limitations History of Present Illness HPI Narrative: Patient presents today complaining of a 2 day history of fever up to 103, headache, body aches, sore throat, nausea that is worse at night, and left-sided abdominal discomfort and bloating that is intermittent. Denies diarrhea, constipation, vomiting. He has been taking cold and flu medicine. Related Data Home Medications Medication Instructions Recorded Confirmed No Home Medications 11/14/23 11/14/23 Allergies Allergy/AdvReac Type Severity Reaction Status Date / Time No Known Allergies Allergy Verified 11/14/23 19:28 Review of Systems Review of Systems: CONSTITUTIONAL: Denies chills, or sweats.+ fever, body aches EYES: Denies visual changes, redness, or discharge. ENT: Denies rhinorrhea, congestion, or otalgia.+ sore throat CARDIOVASCULAR: Denies chest pain, palpitations, or edema. RESPIRATORY: Denies cough or dyspnea. GASTROINTESTINAL: Denies vomiting, or diarrhea.+ nausea, abdominal pain GENITOURINARY: Denies dysuria or hematuria. SKIN: Denies rash, itching, or wounds. MUSCULOSKELETAL: Denies back pain, joint pain, or myalgia. NEUROLOGIC: Denies numbness, tingling, or weakness.+ headache PSYCH: Denies depression or anxiety. [facility] Past Medical History Medical History Anxiety Asthma Heart palpitations Family History Family History Other Heart disease Social History Social History Smoking status: Never smoker Alcohol intake: never Living arrangements: with family Comments At time of signature, I have reviewed and agree with nursing past medical, surgical, social and family history unless otherwise noted. Please see nursing chart for further information. There is no relevant family history pertinent to the presenting complaint Exam Narrative: GENERAL: Well-appearing, well-nourished, and in no acute distress. HEAD: Normocephalic, atraumatic. EYES: EOMI. No redness or drainage. Conjunctivae normal. ENT: Mucous membranes pink and moist. Nares clear. No rhinorrhea. TMs normal bilaterally. Throat normal. Uvula midline. NECK: Normal AROM. Supple. No lymphadenopathy. CHEST: No respiratory distress. Clear to auscultation. HEART: Regular rate and rhythm. No murmur appreciated. Normal peripheral pulses. ABDOMEN: Soft, nontender, nondistended, normal active bowel sounds. Patient localized intermittent pain to the left lateral abdomen. No rebound or guarding. EXTREMITIES: Normal range of motion. No edema. SKIN: Warm, dry, no rash. Capillary refill normal. Normal skin turgor. NEURO: No focal deficits. Alert and oriented x3. Gait steady. PSYCH: Normal affect. No signs of depression or anxiety. Course Course Level of Care: Express Care Visit Vital Signs Vital signs: Vital Signs Temperature 103.8 F H 11/14/23 19:38 Pulse Rate 137 H 11/14/23 19:38 Respiratory Rate 16 11/14/23 19:38 Blood Pressure 123/75 11/14/23 19:38 Pulse Oximetry 98 11/14/23 19:38 Oxygen Delivery Room Air 11/14/23 19:38 Temperature 103.8 F H 11/14/23 19:38 Pulse Rate 137 H 11/14/23 19:38 Respiratory Rate 16 11/14/23 19:38 Blood Pressure 123/75 11/14/23 19:38 Pulse Oximetry 98 11/14/23 19:38 Oxygen Delivery Room Air 11/14/23 19:38 Reviewed MDM - Fever MDM Narrative Medical decision making narrative: All testing negative. At this time patient's abdomen is nontender. Recommend [id number] medication for fever and symptoms. Discussed symptoms that would warrant ER visit. Patient agrees with plan. Antic
== END 2023-11-14 20:15 | disposition home or self-care (01) ==
PROVIDERS: Emergency Provider Nurse Practitioner
DX: B34.9 Viral infection, unspecified (principal); Z20.822 Contact with and (suspected) exposure to COVID-19; J45.909 Unspecified asthma, uncomplicated
CPT/HCPCS: 87081; 87426; 87804; 87880; 99213; G0463

== ENCOUNTER 2024-01-20 19:51 | Emergency (ER) | payer MEDICAID, SELFPAY ==
[2024-01-20 20:00] VITALS: BP 123/68; PULSE 77; RESP 16; TEMP 36.9; O2SAT 100
--- NOTE | 2024-01-20 20:11 | ED.HA ---
HPI - Headache General Chief Complaint: Headache Stated Complaint: Headache Time Seen by Provider: 01/20/24 20:00 Source: patient Mode of arrival: ambulatory Limitations: no limitations History of Present Illness HPI Narrative: Graham is a 28-year-old male patient presenting to the clinic today with complaints headache, scalp tingling, left ear discomfort, and some tension in his neck that started earlier today. He reports that he was sitting at a computer when his symptoms began. Currently rates his pain a 3/10. Does feel so he is having mild light sensitivity but no nausea or vomiting. He denies any fever, chills, body aches, sore throat, URI symptoms, rash, or history of migraines. Took some Tylenol for the pain and this did relieve some of the discomfort. History of mono when he was in high school. Related Data Home Medications Medication Instructions Recorded Confirmed No Home Medications 11/14/23 01/20/24 Allergies Allergy/AdvReac Type Severity Reaction Status Date / Time No Known Allergies Allergy Verified 01/20/24 20:04 Review of Systems Review of Systems: Pertinent positives per HPI. Patient denies any fever, chills, rash,visual changes, dizziness, cough, runny nose, sore throat, shortness of breath, chest pain, palpitations, nausea, vomiting, diarrhea, constipation, abdominal pain, or any urinary issues. PMFSH Past Medical History Medical History Anxiety Asthma Heart palpitations Family History Family History Other Heart disease Social History Social History Smoking status: Never smoker Alcohol intake: never Living arrangements: with family Comments At the time of my signature, I reviewed and agree with the nursing past medical, surgical, social, and family history. There is no relevant family history pertinent to the patient complaint. Exam Narrative: General: Well-developed, well nourished, in no apparent distress Head: Normocephalic, atraumatic, no rash on scalp or trauma-feels paresthesia to the left side top of the scalp Eyes: Pupils equally round and reactive to light bilaterally, EOM intact, sclera and conjunctive clear, no discharge, lids normal Ears: TMs intact and clear, ear canals clear, no drainage, grossly hearing normal. Nose: Nares patent, no discharge, no inflammation, no sinus tenderness. Mouth: Oropharynx without lesions or masses, good dentition, MMM. Neck: Supple, trachea midline, no enlargement of anterior cervical nodes, mild enlarged left posterior cervical node, no thyroid masses or goiter palpable. Cardio: Regular rate and rhythm, s1 and s2 normal, no murmur appreciated. Resp: Clear to auscultation bilaterally anteriorly and posteriorly, no rhonchi, rales, wheezing or rubs Course Course Emergency Course: Portions of this record may have been created with voice recognition software. Level of Care: Express Care Visit Vital Signs Vital signs: Vital Signs Temperature 36.9 C 01/20/24 20:00 Pulse Rate 77 01/20/24 20:00 Respiratory Rate 16 01/20/24 20:00 Blood Pressure 123/68 01/20/24 20:00 Pulse Oximetry 100 01/20/24 20:00 Temperature 36.9 C 01/20/24 20:00 Pulse Rate 77 01/20/24 20:00 Respiratory Rate 16 01/20/24 20:00 Blood Pressure 123/68 01/20/24 20:00 Pulse Oximetry 100 01/20/24 20:00 Vital signs reviewed MDM - Headache MDM Narrative Medical decision making narrative: At the time of visit patient is resting comfortably on the exam table. Patient appears to be nontoxic. Plan: I suspect patient has acute headache, scalp paresthesia, left posterior cervical lymphadenopathy. Vital signs are stable. No visible sign of shingles, throat looks normal, no fever or chills. Supportive measures were discussed with the [place]
== END 2024-01-20 20:19 | disposition home or self-care (01) ==
PROVIDERS: Emergency Provider Nurse Practitioner Family
DX: R20.2 Paresthesia of skin (principal); R51.9 Headache, unspecified; R59.0 Localized enlarged lymph nodes; J45.909 Unspecified asthma, uncomplicated
CPT/HCPCS: 99213; G0463

== ENCOUNTER 2024-03-04 11:01 | Emergency (ER) | payer MEDICAID, SELFPAY ==
[2024-03-04 11:11] VITALS: BP 142/73; PULSE 85; RESP 16; TEMP 36.4; O2SAT 100
--- NOTE | 2024-03-04 11:39 | ED.EAR ---
HPI - Ear Problem General Chief complaint: Ear Stated complaint: something in ear Time Seen by Provider: 03/04/24 11:39 Source: patient Mode of arrival: ambulatory Limitations: no limitations History of Present Illness HPI Narrative: 28-year-old male presents with complaint of something crawling in right ear canal. States he woke up that friend's house and felt something moving around in ER. Went to the ER and states they removed earwax and flushed ear and told him nothing else in his canal. When he walked out to his car he immediately felt something crawling around in his ear again. Came to urgent care. All systems reviewed and negative except as noted above. Related Data Home Medications Medication Instructions Recorded Confirmed No Home Medications 11/14/23 03/04/24 Allergies Allergy/AdvReac Type Severity Reaction Status Date / Time No Known Allergies Allergy Verified 03/04/24 11:06 Review of Systems Review of Systems: CONSTITUTIONAL: Denies fever, chills, or sweats. EYES: Denies visual changes, redness, or discharge. ENT: Denies rhinorrhea, congestion, sore throat . Reports something is crawling around in right ear canal. CARDIOVASCULAR: Denies chest pain, palpitations, or edema. RESPIRATORY: Denies cough or dyspnea. GASTROINTESTINAL: Denies abdominal pain, nausea, vomiting, or diarrhea. GENITOURINARY: Denies dysuria or hematuria. SKIN: Denies rash or itching. MUSCULOSKELETAL: Denies back pain, joint pain, or myalgia. NEUROLOGIC: Denies headache, numbness, or weakness. PSYCHIATRIC: Denies anxiety or depression. All other systems reviewed are negative, except as documented in HPI. PMFSH Past Medical History Medical History Anxiety Asthma Heart palpitations Family History Family History Other Heart disease Social History Social History Smoking status: Never smoker Alcohol intake: never Living arrangements: with family Comments At time of signature, agree with nursing past medical, surgical, social and family history. There is no relevant family history pertinent to the presenting complaint. Exam Narrative: GENERAL: This is a well-nourished, well-developed patient, in no apparent distress. HEAD: normocephalic, atraumatic. EYES: PERRL. Sclera clear/white. Vision is grossly intact. EARS: External ears normal, Small insect noted to right ear canal, no erythema, swelling or drainage, Left ear canal normal, TMs normal without perforation. Hearing grossly intact. NOSE: External nose normal NECK: Neck supple, non-tender without lymphadenopathy, masses or thyromegaly. CARDIOVASCULAR: Regular rate and rhythm without murmurs, gallops, or rubs. RESPIRATORY: Clear to auscultation. Breath sounds equal bilaterally. No wheezes, rales, or rhonchi. SKIN: warm, Dry, intact with no suspicious lesions or rash, good texture and turgor. NEURO: awake, alert, and oriented to person, place and time. There were no obvious focal neurologic abnormalities. EXTREMITIES: No joint tenderness, effusion, or edema noted. Course Course Level of Care: Express Care Visit Vital Signs Vital signs: Vital Signs Temperature 36.4 C L 03/04/24 11:11 Pulse Rate 85 03/04/24 11:11 Respiratory Rate 16 03/04/24 11:11 Blood Pressure 142/73 H 03/04/24 11:11 Pulse Oximetry 100 03/04/24 11:11 Oxygen Delivery Room Air 03/04/24 11:11 Temperature 36.4 C L 03/04/24 11:11 Pulse Rate 85 03/04/24 11:11 Respiratory Rate 16 03/04/24 11:11 Blood Pressure 142/73 H 03/04/24 11:11 Pulse Oximetry 100 03/04/24 11:11 Oxygen Delivery Room Air 03/04/24 11:11 reviewed Procedures FB Removal Ear Foreign Body #1: Foreign Body Removal Date: 03/04/24 Foreign Body Removal Time: 11:45 Loca
== END 2024-03-04 11:55 | disposition home or self-care (01) ==
PROVIDERS: Emergency Provider Nurse Practitioner Family
DX: T16.1XXA Foreign body in right ear, initial encounter (principal); W44.F4XA Insect entering into or through a natural orifice, initial encounter; J45.909 Unspecified asthma, uncomplicated
CPT/HCPCS: 99212; G0463

== ENCOUNTER 2024-07-04 10:43 | Emergency (ER) | payer MEDICAID, SELFPAY ==
[2024-07-04 11:00] VITALS: BP 111/78; PULSE 88; RESP 16; TEMP 37.2; O2SAT 100
--- NOTE | 2024-07-04 11:03 | ED.URI ---
HPI - URI/Sore Throat General Chief Complaint: Upper Respiratory Infection Stated Complaint: Sore Throat/Bodyaches Time Seen by Provider: 07/04/24 11:16 Source: patient, RN notes reviewed and old records reviewed Mode of arrival: ambulatory Limitations: no limitations History of Present Illness HPI Narrative: Patient presents with complaints of 3 days of fever and sore throat. He has been taking Tylenol and ibuprofen with moderate results. States the last night was the worst of his symptoms. Is able to swallow and manage own secretions, but does report that this increases pain. No drooling or stridor. No injury or trauma. Denies other concerns or complaints at this time Related Data Allergies Allergy/AdvReac Type Severity Reaction Status Date / Time No Known Allergies Allergy Verified 07/04/24 10:51 Review of Systems Review of Systems: All systems reviewed & are unremarkable except as noted in HPI and below Constitutional: Constitutional: Reports no additional constitutional complaints ENT: Reports system reviewed and no additional complaints, except as documented and Reports sore throat Cardiovascular: Cardiovascular: Reports no additional cardiovascular complaints Respiratory: Respiratory: Reports no additional respiratory complaints Gastrointestinal: Gastrointestinal: Reports no additional gastrointestinal complaints [facility] Past Medical History Medical History Anxiety Asthma Heart palpitations Family History Family History Other Heart disease Social History Social History Smoking status: Never smoker Alcohol intake: never Living arrangements: with family Comments At the time of my signature, I reviewed and agree with the nursing past medical, surgical, social, and family history. There is no relevant family history pertinent to the patient complaint. Exam Const: General: cooperative, no acute distress, alert and awake Orientation/consciousness: oriented to person, oriented to place and oriented to time HENMT: Head: normal to inspection Ears: TM's normal bilaterally Throat: abnormal tonsil bilateral erythema, exudates and hypertrophy and posterior oropharynx abnormal erythema Resp: Effort & Inspection: normal respiratory effort and able to speak in complete sentences Auscultation: clear to auscultation bilaterally, no crackles, no rales, no rhonchi and no wheezes Cardio: Palpation: normal PMI Rate: regular rate Rhythm: regular rhythm Heart sounds: S1 normal heart sound present and S2 normal heart sound present Neuro: General: oriented to person, oriented to place and oriented to time Cranial nerves: Yes CN's II-XII intact bilaterally Psych: Appearance: grossly normal Thought process: Normal thought process present Insight: Good insight present (Psych) Judgement: Good judgement present (Psych) Course Course Level of Care: Express Care Visit Vital Signs Vital signs: Vital Signs Temperature 98.9 F 07/04/24 11:00 Pulse Rate 88 07/04/24 11:00 Respiratory Rate 16 07/04/24 11:00 Blood Pressure 111/78 07/04/24 11:00 Pulse Oximetry 100 07/04/24 11:00 Oxygen Delivery Room Air 07/04/24 11:00 Temperature 98.9 F 07/04/24 11:00 Pulse Rate 88 07/04/24 11:00 Respiratory Rate 16 07/04/24 11:00 Blood Pressure 111/78 07/04/24 11:00 Pulse Oximetry 100 07/04/24 11:00 Oxygen Delivery Room Air 07/04/24 11:00 Reviewed MDM - URI/Sore Throat MDM Narrative Medical decision making narrative: History, exam and rapid strep consistent with strep throat. Patient nontoxic appearing, no distress. Stable for discharge home on p.o. antibiotics. Discharge instructions reviewed with patient, as well as provided in writing per nursing staff. The instructions also include specific and strict return/GO TO THE ER as well as f/u information. All questions have been answered, and the patient deny any further questions with discharge and discharge plan. Some parts of this dictation were generated by voice recognition software and may contain typographical and/or grammatical inaccuracies. Differential Diagnosis Differential diagnosis: Likely upper respiratory infection, otitis media and pharyngitis Medical Records Attestation: I reviewed the patient's medical records. Lab Data Attestation: I reviewed the patient's lab results. Labs: Lab Results 07/04/24 Range/Units 11:30 POC Grp A Strep Screen Positive (Negative) Discharge Plan Discharge Clinical Impression: Pharyngitis Qualifiers: Pharyngitis/tonsillitis etiology: streptococcus Qualified Code(s): J02.0 - Streptococcal pharyngitis Patient Disposition: Home, Self-Care Condition: Stable Instructions: Antibiotic Form, Strep Throat (ED) Additional Instructions: Take all medications as prescribed. Follow-up with primary care provider. Emergency department for new or worse symptoms. Discard toothpaste and toothbrush after 48-72 hours on antibiotic therapy Patient Language: Macedonian Prescriptions: New penicillin V potassium 500 mg tablet 500 mg PO Q12H 10 Days Qty: 20 0RF Follow-up/Referrals: PHYSICIAN,CLASSIFYING MACHINE OPERATOR [Primary Care Provider] - Stand Alone Forms: Work/School Release IP Time of Disposition: 11:24
[2024-07-04 11:33] LABS: EDSTREPNEGPOS1 Positive (Negative)
== END 2024-07-04 11:33 | disposition home or self-care (01) ==
PROVIDERS: Emergency Provider Nurse Practitioner Family
DX: J02.0 Streptococcal pharyngitis (principal); J45.909 Unspecified asthma, uncomplicated
CPT/HCPCS: 87880; 99213; G0463

== ENCOUNTER 2025-01-30 09:45 | Emergency (ER) | payer OTHER, SELFPAY ==
[2025-01-30 09:57] VITALS: BP 119/74; PULSE 80; RESP 16; TEMP 36.4; O2SAT 99
--- NOTE | 2025-01-30 10:08 | ED_ITS ---
HPI - URI/Sore Throat General Chief Complaint: Upper Respiratory Infection Stated Complaint: Cough/Bodyache Time Seen by Provider: 01/30/25 10:09 Source: patient, RN notes reviewed and old records reviewed Mode of arrival: ambulatory Limitations: no limitations History of Present Illness HPI Narrative: 29-year-old male presents to the [facility] 2 day history of cough, body aches, itchy ears Patient has taken ibuprofen. Feels better today than yesterday. Related Data Home Medications ?Medication ?Instructions ?Recorded ?Confirmed ?Last Taken ?Type ergocalciferol (vitamin D2) 1,250 01/30/25 Unknown History mcg (50,000 unit) capsule fluticasone propionate 50 intranasal 01/30/25 Unknown History mcg/actuation nasal spray,suspension Allergies Allergy/AdvReac Type Severity Reaction Status Date / Time No Known Allergies Allergy Verified 01/30/25 10:07 Review of Systems Review of Systems: All systems reviewed & are unremarkable except as noted in HPI and below Constitutional: Constitutional: Reports as per HPI and Reports body ache(s) ENT: Reports as per HPI Cardiovascular: Cardiovascular: Reports no additional cardiovascular complaints, Denies chest pain and Denies dyspnea Respiratory: Respiratory: Reports as per HPI, Denies chest congestion, Reports cough (Nonproductive) and Denies dyspnea Musculoskeletal: Musculoskeletal: Reports no additional musculoskeletal complaints Integumentary/Breasts: Skin/Breast: Reports system reviewed and no additional complaints, except as docu PMFSH Past Medical History Medical History Anxiety Heart palpitations Asthma Family History Family History Other Heart disease Social History Social History Smoking status: Never smoker Alcohol intake: never Living arrangements: with family Comments At the time of my signature, I reviewed and agree with the nursing past medical, surgical, social, and family history. There is no relevant family history pertinent to the patient complaint. Exam Const: General: cooperative, healthy appearing, comfortable, no acute distress, well developed, alert and well nourished Nutritional Appearance: well nourished Orientation/consciousness: patient oriented x3 Limitations: no limitations HENMT: Head: normal to inspection Ears: hearing grossly normal bilaterally, external ears normal, TM's normal bilaterally, EAC's normal, mastoids normal and no periauricular adenopathy Mouth: Yes Normal oral and palatal mucosa present, Yes lip normal, Yes tongue normal and Yes moist mucous membranes Throat: posterior oropharynx normal, uvula midline and no uvular edema Eyes: General: appearance normal, both eyes and all related structures Alignment and Position: alignment normal Neck: Neck: normal visual inspection, full ROM, no lymphadenopathy and no meningeal signs Chest: Chest palpation & inspection: normal inspection of the chest Resp: Effort & Inspection: normal respiratory effort and able to speak in complete sentences Auscultation: clear to auscultation bilaterally, no crackles, no rales, no rhonchi and no wheezes Cardio: Rate: regular rate Skin: General skin exam: normal color and no rashes or lesions noted Neuro: General: patient oriented x3, gait normal, moves all extremities and no meningeal signs Cognition (Neuro): normal cognition Speech: normal speech Gait exam (Neuro): Normal gait present Extrem: General: normal to inspection, full ROM, capillary refill normal and normal gait Psych: Appearance: grossly normal and well kempt Mental Status: mental status grossly normal Speech and movement: Normal speech and movement present and Clear speech present Affect: normal affect Attitude: cooperative Course Course Level of Care: Express Care Visit Vital Signs Vital signs: Vital Signs Temperature 97.6 F 01/30/25 09:57 Pulse Rate 80 01/30/25 09:57 Respiratory Rate 16 01/30/25 09:57 Blood Pressure 119/74 01/30/25 09:57 Pulse Oximetry 99 01/30/25 09:57 Oxygen Delivery Room Air 01/30/25 09:57 Temperature 97.6 F 01/30/25 09:57 Pulse Rate 80 01/30/25 09:57 Respiratory Rate 16 01/30/25 09:57 Blood Pressure 119/74 01/30/25 09:57 Pulse Oximetry 99 01/30/25 09:57 Oxygen Delivery Room Air 01/30/25 09:57 Reviewed MDM - URI/Sore Throat MDM Narrative Medical decision making narrative: Patient sitting in exam room. Patient is nontoxic, vitals are stable Two day history of URI symptoms. Patient COVID positive Patient appropriate for outpatient treatment and follow-up Discharge instructions reviewed with patient, as well as provided in writing per nursing staff. The instructions also include specific and strict return/GO TO THE ER as well as f/u information. All questions have been answered, and the patient deny any further questions with discharge and discharge plan. Some parts of this dictation were generated by voice recognition software and may contain typographical and/or grammatical inaccuracies. Differential Diagnosis Differential diagnosis: Likely upper respiratory infection, otitis media, sinusitis, viral infection, bronchitis, influenza and pharyngitis Lab Data Labs: Lab Results 01/30/25 01/30/25 01/30/25 Range/Units 10:19 10:20 10:21 POC Influenza A Ag Negative Negative (Negative) POC Influenza B Ag Negative Negative (Negative) POC SARS CoV-2 Ag Positive Negative (Negative) Reviewed Critical Care Time Critical Care Time Critical Care Time: No Discharge Plan Discharge Clinical Impression: COVID-19 Patient Disposition: Home Condition: Stable Instructions: Antibiotic Form, COVID-19 (Coronavirus Disease 2019) (ED), COVID- 19: Slow the Coronavirus Spread (ED), COVID-19 and Children (ED) Additional Instructions: Your rapid COVID test was positive Your rapid flu test was negative Your symptoms are due to a viral illness, which is not treated with antibiotics. Typically viral infections last 7-10 days, can linger for couple of weeks. It is very important to treat your symptoms. Drink plenty of water, Gatorade, Pedialyte, ice pops or Jell-O. -Alternate Tylenol and Motrin per package directions for fever or pain. You can alternate every 4 hours -Antihistamine medication such as Zyrtec/Claritin/Malika during the day can help improve symptoms. -doing daily nasal irrigations can help relieve pressure your sinuses. Things like a Neti pot -Use Flonase twice a day for 5 days then daily to help reduce the inflammation and dry up your sinuses. -You can also use Mucinex. Be sure to drink plenty of water with this medication at least 8 ounces with every dose and it is important to drink 8 to 10 glasses of water per day. Water is a natural decongestant -Eat and drink things that are easy to swallow, like tea or soup, or popsicles. -Oral rinses such as: Salt water gargles and/or may use topical anesthetic (eg. Chloraseptic spray) or lozenges to relieve dryness or throat pain). -Frequent hand washing or hand composition roll maker and cutter is one of the best ways to prevent spread of infection. -Using a vaporizer or humidifier at night will also help thin secretions and help with coughing up phlegm. -Follow up with primary care provider in 7-10 days if condition is not improving - For new or worsening symptoms go directly to the nearest ER Patient Language: Albanian Prescriptions: No Action ergocalciferol (vitamin D2) 1,250 mcg (50,000 unit) capsule fluticasone propionate 50 mcg/actuation spray,suspension INTRANASAL Follow-up/Referrals: PHYSICIAN,YOUTH AGENT [Primary Care Provider] - Stand Alone Forms: Work/School Release IP Time of Disposition: 10:19
[2025-01-30 10:23] LABS: EDINFLUASCREEN Negative (Negative); EDINFLUBSCREEN Negative (Negative)
[2025-01-30 10:23] LABS: EDCOVIDSCREEN Positive (Negative)
[2025-01-30 10:31] LABS: EDCOVIDSCREEN Negative (Negative); EDINFLUASCREEN Negative (Negative); EDINFLUBSCREEN Negative (Negative)
== END 2025-01-30 10:25 | disposition home or self-care (01) ==
PROVIDERS: Emergency Provider Nurse Practitioner
DX: U07.1 COVID-19 (principal); J45.909 Unspecified asthma, uncomplicated
CPT/HCPCS: 87426; 87804; 99212; G0463

== ENCOUNTER 2025-05-01 16:59 | Emergency (ER) | payer SELFPAY ==
[2025-05-01 17:09] VITALS: BP 126/73; PULSE 74; RESP 18; TEMP 36.8; O2SAT 100
--- NOTE | 2025-05-01 17:28 | ED_ITS ---
HPI - Extremity Injury (Upper) General Chief Complaint: Eye Problems Stated Complaint: RT Arm Pain Source: patient Mode of arrival: ambulatory Limitations: no limitations History of Present Illness HPI narrative: 29 old male presented for complaint of pain to the right arm. Onset today. 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 pain was sharp and progressively worsened over the next few hours. Since then has subsided. Now he describes it as a cramping in the bicep, elbow, and wrist. Denies numbness, tingling, or weakness. Endorses normal range of motion, but pain with posterior movement. Denies known injury. He states over the past 2-3 days he has been swimming and holding his 3-year-old more frequently. Has not taken anything for pain. Additionally, patient reports bilateral eyes feel dry x3 days, left eye twitches at times, and he had a brief episode of tunnel vision today. Denies dizziness, chest pain, palpitations, nausea, vomiting, fevers or chills. Related Data Allergies Allergy/AdvReac Type Severity Reaction Status Date / Time No Known Allergies Allergy Verified 05/01/25 17:19 Review of Systems Review of Systems: CONSTITUTIONAL: Denies body aches, fever, chills EYES: reports one episode of tunnel vision ENT: Denies rhinorrhea, congestion CARDIOVASCULAR: Denies chest pain, palpitations, or edema. RESPIRATORY: Denies cough or dyspnea. SKIN: Denies rash, itching, or wounds. MUSCULOSKELETAL: reports right shoulder and arm pain NEUROLOGIC: Denies headache, numbness, tingling, or weakness. All systems reviewed & are unremarkable except as noted in HPI and below PMFSH Past Medical History Medical History Anxiety Heart palpitations Asthma Family History Family History Other Heart disease Social History Social History Smoking status: Never smoker Alcohol intake: never Living arrangements: with family Comments At time of signature, I have reviewed and agree with nursing past medical, surgical, social and family history unless otherwise noted. Please see nursing chart for further information. There is no relevant family history pertinent to the presenting complaint Exam Narrative: GENERAL: Well-appearing, ENT: eyes with normal conjunctiva, PERRLA, EOMI CHEST: Speaks in full sentences. No respiratory distress. HEART: Regular rate and rhythm. Normal and equal peripheral pulses. EXTREMITIES: DEBBY has normal strength and sensation, normal range of motion at elbow and shoulder. Tender with palpation to anterior deltoid, chest, right trapezius, and right medial epicondyle. No edema or ecchymosis, No open wounds, alignment normal, pulse palpable and equal bilaterally, skin warm, dry, pink. Capillary refill less than 3 seconds. SKIN: Warm, dry, no rash. NEURO: Alert and oriented x3. PSYCH: Normal mood and affect Course Course Emergency Course: Patient is aware of diagnosis, understands and agrees to treatment plan. Antici scarory guidance given. Patient agrees to follow-up as directed and is aware of reasons to seek care at the emergency department. Portions of this record may have been created with voice recognition software Level of Care: Express Care Visit Vital Signs Vital signs: Vital Signs Temperature 98.3 F 05/01/25 17:09 Pulse Rate 74 05/01/25 17:09 Respiratory Rate 18 05/01/25 17:09 Blood Pressure 126/73 05/01/25 17:09 Pulse Oximetry 100 05/01/25 17:09 Oxygen Delivery Room Air 05/01/25 17:09 Temperature 98.3 F 05/01/25 17:09 Pulse Rate 74 05/01/25 17:09 Respiratory Rate 18 05/01/25 17:09 Blood Pressure 126/73 05/01/25 17:09 Pulse Oximetry 100 05/01/25 17:09 Oxygen Delivery Room Air 05/01/25 17:09 Reviewed MDM - Extremity Injury (Upper) [facility] Narrative Medical decision making narrative: Patient's injury and pain appear to be of musculoskeletal nature. No concerns for compartment syndrome. No concern for tendon or nerve injury. Discussed physical exam findings. Advised supportive measures and signs/symptoms to go to the ER. Pt is appropriate for outpt treatment and f/u. Differential Diagnosis Differential diagnosis: Likely other (Shoulder dislocation, clavicle fracture, humerus fracture, scapular fracture, acromioclavicular joint injury, rotator cuff tear, bicep tendon rupture, tricep tendon rupture, cervical radiculopathy) Discharge Plan Discharge Clinical Impression: Eye irritation, Arm pain, right Patient Disposition: Home Condition: Stable Instructions: Antibiotic Form, Eye Lubricant (Into the eye), Musculoskeletal Pa in (ED), Arm Pain (ED) Additional Instructions: Rest. Avoid pushing, pulling, lifting or anything that worsens the symptoms Tylenol 1000mg every 8 hours as needed You can alternate with ibuprofen 600mg Cyclobenzaprine (Flexeril) is a muscle relaxer. Take it as directed. It can cause drowsiness so do not drive or operate machinery until you know how it makes you feel. Alternate ice/heat to the site. Lidocaine or salon pas pain patch or use pain cream like icy/hot or biofreeze. Avoid touching or rubbing your eye. Use over the counter lubricating eye drops as needed for irritation Use a warm or cool washcloth on your eye for comfort Practice good handwashing and hygiene to prevent spread of infection Go to the emergency room if you have severe pain or pressure behind your eye, difficulty seeing, or other severe symptoms [facility] [phone] [facility] [phone] [facility] [phone] [facility] [phone] Follow up with your primary care provider as needed in 1 week Go to the ER for worsening symptoms or concerns Patient Language: Setswana Prescriptions: New cyclobenzaprine 10 mg tablet 10 mg PO TID PRN (Reason: muscle spasm) Qty: 10 0RF prednisone 50 mg tablet 50 mg PO DAILY Qty: 5 0RF Follow-up/Referrals: PHYSICIAN,AGRICULTURAL EQUIPMENT OPERATOR [Primary Care Provider, Internal Medicine] Stand Alone Forms: Work/School Release IP Time of Disposition: 18:07
== END 2025-05-01 18:15 | disposition home or self-care (01) ==
PROVIDERS: Emergency Provider Nurse Practitioner Family
DX: M79.621 Pain in right upper arm (principal); H57.13 Ocular pain, bilateral; J45.909 Unspecified asthma, uncomplicated
CPT/HCPCS: 99213; G0463

== ENCOUNTER 2025-06-14 19:19 | Emergency (ER) | payer OTHER, SELFPAY ==
[2025-06-14 19:40] VITALS: BP 117/73; PULSE 85; RESP 20; TEMP 36.9; O2SAT 97
--- NOTE | 2025-06-14 19:53 | ED_ITS ---
HPI - Ear Problem General Chief complaint: Ear Stated complaint: Lt ear discomfort Time Seen by Provider: 06/14/25 19:45 Source: patient and RN notes reviewed Mode of arrival: ambulatory Limitations: no limitations History of Present Illness HPI Narrative: Delay 9-year-old male patient presents [facility] complaining of left ear pain for approximally 3 days. Patient denies any upper respiratory symptoms, cough chest pain, difficulty breathing, nausea vomiting, diarrhea, abdominal pain, any other symptoms. Patient reports having an infected tooth to his left lower mouth as well. He is unsure if it is related. Patient says he is unable to go to a dentist due to financial reasons. Patient denies any fevers, body aches, chills. Patient has not done anything [id number] help with symptoms. Patient has a history impacted earwax that required surgical intervention. Related Data Allergies Allergy/AdvReac Type Severity Reaction Status Date / Time No Known Allergies Allergy Verified 06/14/25 19:34 Review of Systems Review of Systems: CONSTITUTIONAL: Denies fever, chills, or sweats. EYES: Denies visual changes, redness, or discharge. ENT: Denies rhinorrhea, congestion, sore throat. Positive for otalgia. Mouth: Positive for dental pain. CARDIOVASCULAR: Denies chest pain, palpitations, or edema. RESPIRATORY: Denies cough or dyspnea. GASTROINTESTINAL: Denies abdominal pain, nausea, vomiting, or diarrhea. GENITOURINARY: Denies dysuria or hematuria. SKIN: Denies rash or itching. MUSCULOSKELETAL: Denies back pain, joint pain, or myalgia. NEUROLOGIC: Denies headache, numbness, or weakness. PSYCHIATRIC: Denies anxiety or depression. All other systems reviewed are negative, except as documented in HPI. [facility] Past Medical History Medical History Anxiety Heart palpitations Asthma Family History Family History Other Heart disease Social History Social History Smoking status: Never smoker Alcohol intake: never Living arrangements: with family Comments At the time of my signature, I reviewed and agree with the nursing past medical, surgical, social, and family history. There is no relevant family history pertinent to the patient complaint. Exam Narrative: GENERAL: This is a well-nourished, well-developed adult, in no apparent distress. They are non ill-appearing, nontoxic appearing. HEAD: normocephalic, atraumatic. EYES: Sclera clear/white. Conjunctiva normal. Vision is grossly intact. Extraocular movements intact EARS: External ears normal, auditory canals clear and without drainage, TMs normal without perforation. Hearing grossly intact. NOSE: External nose normal with no obvious nasal discharge, nasal turbinates without redness, no rhinorrhea. THROAT: Mucous membranes moist, posterior pharynx clear, without erythema or swelling. Uvula midline. OROPHARYNX: 3rd molar erythematous to left lower mouth. Tongue midline. No pain or swelling under the tongue. Tooth decay present. No gingivitis. No trismus. No TMJ tenderness. NECK: Neck supple, non-tender without lymphadenopathy, masses or thyromegaly. CARDIOVASCULAR: Regular rate and rhythm without murmurs, gallops, or rubs. RESPIRATORY: Clear to auscultation. Breath sounds equal bilaterally. No wheezes, rales, or rhonchi. SKIN: warm, Dry, intact with no suspicious lesions or rash, good texture and turgor. NEURO: awake, alert, and oriented to person, place and time. There were no obvious focal neurologic abnormalities. EXTREMITIES: No joint tenderness, effusion, or edema noted. Course Course Emergency Course: Portions of this record may have been created with voice recognition software Level of Care: Express Care Visit Vital Signs Vital signs: Vital Signs Temperature 98.5 F 06/14/25 19:40 Pulse Rate 85 06/14/25 19:40 Respiratory Rate 20 06/14/25 19:40 Blood Pressure 117/73 06/14/25 19:40 Pulse Oximetry 97 06/14/25 19:40 Oxygen Delivery Room Air 06/14/25 19:40 Temperature 98.5 F 06/14/25 19:40 Pulse Rate 85 06/14/25 19:40 Respiratory Rate 20 06/14/25 19:40 Blood Pressure 117/73 06/14/25 19:40 Pulse Oximetry 97 06/14/25 19:40 Oxygen Delivery Room Air 06/14/25 19:40 Reviewed Medical Decision Making MDM Narrative Medical decision making narrative: No evidence of ear infection or impacted cerumen. Patient has an infected tooth. May be causing referred pain. Will treat with Augmentin. Discussed physical exam findings. Advised supportive measures and signs/symptoms to go to the ER. Pt is appropriate for outpt treatment and f/u. Differential Diagnosis Differential Diagnosis: Otitis media, otitis externa, dental abscess, dental infection,, upper respiratory infection. Vital Signs Vital Signs: Vital Signs Temperature 98.5 F 06/14/25 19:40 Pulse Rate 85 06/14/25 19:40 Respiratory Rate 20 06/14/25 19:40 Blood Pressure 117/73 06/14/25 19:40 Pulse Oximetry 97 06/14/25 19:40 Oxygen Delivery Room Air 06/14/25 19:40 Temperature 98.5 F 06/14/25 19:40 Pulse Rate 85 06/14/25 19:40 Respiratory Rate 20 06/14/25 19:40 Blood Pressure 117/73 06/14/25 19:40 Pulse Oximetry 97 06/14/25 19:40 Oxygen Delivery Room Air 06/14/25 19:40 Critical Care Time Critical Care Time Critical Care Time: No Discharge Plan Discharge Clinical Impression: Dental infection, Otalgia, left ear Patient Disposition: Home Condition: Stable Instructions: Antibiotic Form, Dental Abscess (ED) Additional Instructions: Take the antibiotics as directed. You may alternate Tylenol and ibuprofen as needed for pain. Follow instructions on the bottle. [place] your teeth and floss at least 2 times a day. You may use mouthwash after each brushing as well. Follow-up with dentist next week. You may try [facility]. He developed worsening swelling, fevers, difficulty swallowing or breathing, difficulty opening her jaw, swelling under the tongue, or any other concerns please go to the ER immediately. Patient Language: Portuguese Prescriptions: New amoxicillin-pot clavulanate 875-125 mg tablet 1 tablet PO Q12H 7 Days Qty: 14 0RF Follow-up/Referrals: Edna,Kartik Barraza [Other] Time of Disposition: 19:53
== END 2025-06-14 20:00 | disposition home or self-care (01) ==
DX: K04.7 Periapical abscess without sinus (principal); H92.02 Otalgia, left ear; J45.909 Unspecified asthma, uncomplicated
CPT/HCPCS: 99213; G0463